=== PATIENT | female | born 2000 | race American Indian/Alaskan Native ===

== ENCOUNTER 2018-09-05 16:38 | Emergency (ER) | payer MEDICAID, OTHER ==
[2018-09-05 17:10] VITALS: BP 109/65
--- NOTE | 2018-09-05 17:11 | Emergency Department Report ---
Earache (Pediatric) - HPI Chief Complaint: Earache Stated Complaint: L EAR PAIN Time Seen by Provider: 09/05/18 17:08 Duration: 1 Day Location: Left Severity: Mild Symptoms: No URI, No Sore Throat, No Trauma to EAC, No History of Moisture in Ear, No Fever, No Vomiting, No Cough, No Shortness of Breath Other History: TO EAR WITH L EAR PAIN. NO FEVER. RUNNY NOSE. NO COUGH. AMBULATORY. NON TOXIC. ED Review of Systems ROS: Stated complaint: L EAR PAIN Other details as noted in HPI Comment: All other systems reviewed and negative Pediatric Past Medical History - Chronic Health Problems Hx Asthma: No Hx Diabetes: No Hx HIV: No Hx Renal Disease: No Hx Sickle Cell Disease: No Hx Seizures: No Peds Earache exam - Exam General: Vital signs noted. No distress. Alert and acting appropriately. HEENT: Yes Moist Mucous Membranes, No Pharyngeal Erythema, No Pharyngeal Exudates, No Rhinorrhea, No Conjuctival Injection, No Frontal Tenderness, No Maxillary Tenderness Peds Neck exam: Adenopathy: Yes, Supple: No Peds Lung exam: Good Air Exchange: Yes, Wheezes: No, Stridor: No Heart: Yes Regular Peds abdomen: Abdominal Tenderness: No Peds Skin Exam: Rash: No, Eczema: No Neurologic: Alert and oriented, no deficits. Musculoskeletal: Unremarkable. ED Course Vital Signs 09/05/18 17:08 Temperature 99.0 F Pulse Rate 82 Respiratory 20 Rate Blood Pressure 109/65 O2 Sat by Pulse 100 Oximetry ED Medical Decision Making - Medical Decision Making Vital Signs 09/05/18 17:08 Temperature 99.0 F Pulse Rate 82 Respiratory 20 Rate Blood Pressure 109/65 O2 Sat by Pulse 100 Oximetry DC HOME WITH SIMPLE URI NO FEVER NON TOXIC AMBULATORY TAKING PO NO FB IN EAR DC HOME WITH DC PLAN OF CARE AND FOLLOW UP Critical care attestation.: If time is entered above; I have spent that time in minutes in the direct care of this critically ill patient, excluding procedure time. ED Disposition Clinical Impression: Seasonal allergies, Otitis media Disposition: DC-01 TO HOME OR SELFCARE Is pt being admited?: No Does the pt Need Aspirin: No Condition: Stable Instructions: Otitis Media (ED), Allergic Rhinitis (ED) Prescriptions: Amoxicillin 500 mg PO BID #20 capsule predniSONE [Deltasone] 20 mg PO DAILY #5 tablet Fluticasone [Flonase] 1 spray NS QDAY #1 bottle Cetirizine HCl [ZyrTEC] 10 mg PO DAILY #30 capsule Referrals: [facility] [Outside] - 3-5 Days Forms: Work/School Release Form(ED) Time of Disposition: 17:10
== END 2018-09-05 17:29 | disposition home or self-care (01) ==
LOC: ED 16:38
DX: H66.92 Otitis media, unspecified, left ear (principal); J30.2 Other seasonal allergic rhinitis
CPT/HCPCS: 99282

== ENCOUNTER 2020-03-28 06:13 | Emergency (ER) | payer MEDICAID ==
[2020-03-28 06:31] VITALS: BP 113/70
[2020-03-28 06:58] LABS: Bacteria,Urine 4+ /HPF (Negative); Bilirubin,Urine NEG (Negative); Blood,Urine NEG (Negative); Color,Urine Yellow (Yellow); Mucus,Urine 3+ /HPF; Sperm,Urine 1+ /HPF (NP)
[2020-03-28 07:23] LABS: Basophils % (Auto) 0.6 % (0.0-1.8); Eosinophils # (Auto) 0.1 K/mm3 (0.0-0.4); Eosinophils % (Auto) 1.1 % (0.0-4.3); Hematocrit 41.2 % (30.3-42.9); Hemoglobin 13.4 gm/dl (10.1-14.3); Lymphocytes # (Auto) 2.3 K/mm3 (1.2-5.4); Lymphocytes % (Auto) 33.7 % (13.4-35.0); Mean Corpuscular HGB Conc 33 % (30-34); Mean Corpuscular Volume 83 fl (79-97); Monocytes # (Auto) 0.5 K/mm3 (0.0-0.8); Monocytes % (Auto) 8.1 % (0.0-7.3); Platelet Count 294 K/mm3 (140-440); Red Blood Count 4.98 M/mm3 (3.65-5.03); Red Cell Distribution Width 13.8 % (13.2-15.2)
--- NOTE | 2020-03-28 07:25 | Ultrasound Report ---
ULTRASOUND OBSTETRIC INDICATION / CLINICAL INFORMATION: abdominal pain. Clinical Gestational Age (GA) in weeks, days: Unknown TECHNIQUE: Transabdominal. COMPARISON: None available. FINDINGS: GESTATIONAL SAC: Well-defined oval shape and intrauterine in location. YOLK SAC: No significant abnormality. EMBRYO/FETUS: No significant abnormality. - [place]-Rump Length = 11.8 mm = 7 weeks, 2 days - Heart Rate, beats per minute (if present) = 38 ADNEXA: Both ovaries are well-visualized. There is no significant ovarian or adnexal abnormality.. FREE FLUID: None. ADDITIONAL FINDINGS: None. IMPRESSION: 1. Single, living intrauterine with estimated sonographic age of 7 weeks, 2days. Signer Name: Ceci Mitchell MD Signed: 03/28/2020 7:21 AM Workstation Name: [id number]
[2020-03-28 07:41] LABS: Blood Urea Nitrogen 11 mg/dL (7-17); Calcium 9.5 mg/dL (8.4-10.2); Hemolysis Index 35
[2020-03-28 07:44] LABS: BUN/Creatinine Ratio 18
[2020-03-28] MEDS ORDERED: SODIUM CHLORIDE 0.9% 1000 ML 1,000 ML IV ONE (09:21)
[2020-03-28] MEDS ORDERED: METOCLOPRAMIDE 10 MG/2 ML INJ IV STA (09:21)
[2020-03-28] MEDS ORDERED: diphenhydrAMINE 50 MG/ML VIAL IV STA (09:21)
[2020-03-28] MEDS ORDERED: PYRIDOXINE 50 MG TAB PO SCH (10:00)
--- NOTE | 2020-03-28 11:15 | Emergency Department Report ---
ED General Adult HPI - General Chief complaint: Abdominal Pain Stated complaint: DIZZY Time Seen by Provider: 03/28/20 09:16 Source: patient Mode of arrival: Ambulatory Limitations: No Limitations - History of Present Illness Initial comments: 19-year-old female that emerge department complaining of increased episodes of morning sickness associated with general aches and suspicious of some dehydration due to her hyperemesis. Reports no hemoptysis no hematemesis hematochezia no fever, chills, sweats, chest pain, palpitations. Radiation: non-radiation Quality: dull Consistency: constant Improves with: none Worsens with: none Associated Symptoms: nausea/vomiting. denies: chest pain - Related Data Previous Rx's Medication Instructions Recorded Last Taken Type Amoxicillin 500 mg PO BID #20 capsule 09/05/18 Unknown Rx Cetirizine HCl [ZyrTEC] 10 mg PO DAILY #30 capsule 09/05/18 Unknown Rx Fluticasone [Flonase] 1 spray NS QDAY #1 bottle 09/05/18 Unknown Rx predniSONE [Deltasone] 20 mg PO DAILY #5 tablet 09/05/18 Unknown Rx Cyclobenzaprine [Flexeril] 10 mg PO QHS PRN #12 tablet 10/27/19 Unknown Rx Ibuprofen [Motrin] 600 mg PO Q8H PRN #24 tablet 10/27/19 Unknown Rx cephALEXin [Keflex] 500 mg PO Q12HR #20 cap 10/27/19 Unknown Rx Metoclopramide [Reglan] 10 mg PO TID PRN #30 tab 03/28/20 Unknown Rx Pyridoxine [Vitamin B-6 50MG TAB] 100 mg PO QDAY #30 tablet 03/28/20 Unknown Rx Allergies Allergy/AdvReac Type Severity Reaction Status Date / Time No Known Allergies Allergy Verified 12/14/19 08:02 ED Review of Systems ROS: Stated complaint: DIZZY Other details as noted in HPI Comment: All other systems reviewed and negative ED Past Medical Hx - Past Medical History Previous Medical History?: No Hx Hypertension: No Hx Congestive Heart Failure: No Hx Diabetes: No Hx Deep Vein Thrombosis: No Hx Renal Disease: No Hx Sickle Cell Disease: No Hx Seizures: No Hx Asthma: No Hx COPD: No Hx HIV: No - Surgical History Past Surgical History?: No - Social History Smoking Status: Never Smoker Substance Use Type: None - Medications Home Medications: Home Medications Medication Instructions Recorded Confirmed Last Taken Type Amoxicillin 500 mg PO BID #20 capsule 09/05/18 Unknown Rx Cetirizine HCl [ZyrTEC] 10 mg PO DAILY #30 capsule 09/05/18 Unknown Rx Fluticasone [Flonase] 1 spray NS QDAY #1 bottle 09/05/18 Unknown Rx predniSONE [Deltasone] 20 mg PO DAILY #5 tablet 09/05/18 Unknown Rx Cyclobenzaprine [Flexeril] 10 mg PO QHS PRN #12 tablet 10/27/19 Unknown Rx Ibuprofen [Motrin] 600 mg PO Q8H PRN #24 tablet 10/27/19 Unknown Rx cephALEXin [Keflex] 500 mg PO Q12HR #20 cap 10/27/19 Unknown Rx Metoclopramide [Reglan] 10 mg PO TID PRN #30 tab 03/28/20 Unknown Rx Pyridoxine [Vitamin B-6 50MG TAB] 100 mg PO QDAY #30 tablet 03/28/20 Unknown Rx ED Physical Exam - General Limitations: No Limitations General appearance: alert, in no apparent distress - Head Head exam: Present: atraumatic, normocephalic - Eye Eye exam: Present: normal appearance - ENT ENT exam: Present: mucous membranes moist - Neck Neck exam: Present: normal inspection - Respiratory Respiratory exam: Present: normal lung sounds bilaterally. Absent: respiratory distress - Cardiovascular Cardiovascular Exam: Present: regular rate, normal rhythm. Absent: systolic murmur, diastolic murmur, rubs, gallop - GI/Abdominal GI/Abdominal exam: Present: soft, normal bowel sounds - Extremities Exam Extremities exam: Present: normal inspection - Back Exam Back exam: Present: normal inspection - Neurological Exam Neurological exam: Present: alert, oriented X3 - Psychiatric Psychiatric exam: Present: normal affect, normal mood - Skin Skin exam: Present: warm, dry, intact, normal color. Absent: rash ED Course Vital Signs 03/28/20 06:28 Temperature 98.6 F Pulse Rate 91 H Respiratory 18 Rate Blood Pressure 113/70 O2 Sat by Pulse 97 Oximetry - Consultations Consultation #1: 03/28/20 11:15 Significant improvement in her symptoms post treatment with with medication. She is remained hemodynamically stable throughout her entire ED visit. She is tolerating oral ambulatory asymptomatic at current ED Medical Decision Making - Lab Data Result diagrams: 03/28/20 07:12 03/28/20 07:12 - Medical Decision Making Female presents emergency department complaining of nausea and vomiting without diarrhea. The patient is overall well-appearing and suspected to have hyperemesis gravidarum. Given the history of examination he does not appear to be an emergency cause for the symptoms such as small bowel obstruction, coronary syndrome, bowel ischemia, DKA, pancreatitis, appendicitis, acute abdomen no emergent problem. Patient was treated with Reglan, Benadryl, fluids as well as vitamin D6. After treatment patient is feeling much better tolerating p.o. fluids shows no signs of dehydration Critical care attestation.: If time is entered above; I have spent that time in minutes in the direct care of this critically ill patient, excluding procedure time. ED Disposition Clinical Impression: Hyperemesis gravidarum Disposition: - TO HOME OR SELFCARE Is pt being admited?: No Does the pt Need Aspirin: No Condition: Stable Instructions: Abdominal Pain (ED), Morning Sickness, [id number], Hyperemesis Gravidarum Prescriptions: Metoclopramide [Reglan] 10 mg PO TID PRN #30 tab PRN Reason: Nausea Pyridoxine [Vitamin B-6 50MG TAB] 100 mg PO QDAY #30 tablet Referrals: [facility]IMARY [facility]ARE, [Primary Care Provider] - 3-5 Days [facility] [Provider Group] - 3-5 Days
== END 2020-03-28 11:23 | disposition home or self-care (01) ==
LOC: ED 06:13
DX: O21.0 Mild hyperemesis gravidarum (principal); Z79.899 Other long term (current) drug therapy; Z3A.01 Less than 8 weeks gestation of pregnancy
CPT/HCPCS: 36415; 76801; 80048; 81001; 84702; 85025; 96361; 96374; 96375; 99284; J1200; J2765; J7030

== ENCOUNTER 2020-06-21 20:19 | Emergency (ER) | payer MEDICAID ==
[2020-06-21] MEDS ORDERED: ACETAMINOPHEN 325 MG TAB PO ONE (20:39)
[2020-06-21] MEDS ORDERED: SODIUM CHLORIDE 0.9% 1000 ML 1,000 ML IV ONE (20:39)
--- NOTE | 2020-06-21 20:39 | Emergency Department Report ---
ED Female HPI - General Stated complaint: ABD PAIN Time Seen by Provider: 06/21/20 20:36 - History of Present Illness Initial comments: 19 yr old female presents to ED c/o RLQ abd pain. Onset today. Pt states she is about 19 weeks . She is AB1. She states she has been having intermittent pain in RLQ since today. She denies any associated vag bleeding, abnl vag d/c, UTI symptoms, diarrhea or vomiting. She states she has not taken any medications for pain today. She states her pain has improved now since arriving to ED. She also reports she has been very stressed lately and tearful. She has been has been thinking of whether she wants to keep the baby. She also does not have much family support and she lives in a hotel. She states she has not discussed her feelings about the baby with her OBGYN. She denies any SI/HI, or hallucin ations. Complaint: other (abdomen pain; 19 weeks gestation) -: Gradual, days(s) (since today ) - Related Data Previous Rx's Medication Instructions Recorded Last Taken Type Amoxicillin 500 mg PO BID #20 capsule 09/05/18 Unknown Rx Cetirizine HCl [ZyrTEC] 10 mg PO DAILY #30 capsule 09/05/18 Unknown Rx Fluticasone [Flonase] 1 spray NS QDAY #1 bottle 09/05/18 Unknown Rx predniSONE [Deltasone] 20 mg PO DAILY #5 tablet 09/05/18 Unknown Rx Cyclobenzaprine [Flexeril] 10 mg PO QHS PRN #12 tablet 10/27/19 Unknown Rx Ibuprofen [Motrin] 600 mg PO Q8H PRN #24 tablet 10/27/19 Unknown Rx cephALEXin [Keflex] 500 mg PO Q12HR #20 cap 10/27/19 Unknown Rx Metoclopramide [Reglan] 10 mg PO TID PRN #30 tab 03/28/20 Unknown Rx Pyridoxine [Vitamin B-6 50MG TAB] 100 mg PO QDAY #30 tablet 03/28/20 Unknown Rx Allergies Allergy/AdvReac Type Severity Reaction Status Date / Time No Known Allergies Allergy Verified 12/14/19 08:02 ED Review of Systems ROS: Stated complaint: ABD PAIN Other details as noted in HPI Comment: All other systems reviewed and negative Constitutional: denies: chills, fever Eyes: denies: eye pain, eye discharge, vision change ENT: denies: ear pain, throat pain Respiratory: denies: cough, shortness of breath, wheezing Cardiovascular: as per HPI Gastrointestinal: abdominal pain Genitourinary: denies: urgency, dysuria, discharge Musculoskeletal: denies: back pain, joint swelling, arthralgia Skin: denies: rash, lesions Neurological: denies: headache, weakness, paresthesias ED Past Medical Hx - Past Medical History Hx Hypertension: No Hx Congestive Heart Failure: No Hx Diabetes: No Hx Deep Vein Thrombosis: No Hx Renal Disease: No Hx Sickle Cell Disease: No Hx Seizures: No Hx Asthma: No Hx COPD: No Hx HIV: No - Social History Smoking Status: Never Smoker Substance Use Type: None - Medications Home Medications: Home Medications Medication Instructions Recorded Confirmed Last Taken Type Amoxicillin 500 mg PO BID #20 capsule 09/05/18 Unknown Rx Cetirizine HCl [ZyrTEC] 10 mg PO DAILY #30 capsule 09/05/18 Unknown Rx Fluticasone [Flonase] 1 spray NS QDAY #1 bottle 09/05/18 Unknown Rx predniSONE [Deltasone] 20 mg PO DAILY #5 tablet 09/05/18 Unknown Rx Cyclobenzaprine [Flexeril] 10 mg PO QHS PRN #12 tablet 10/27/19 Unknown Rx Ibuprofen [Motrin] 600 mg PO Q8H PRN #24 tablet 10/27/19 Unknown Rx cephALEXin [Keflex] 500 mg PO Q12HR #20 cap 10/27/19 Unknown Rx Metoclopramide [Reglan] 10 mg PO TID PRN #30 tab 03/28/20 Unknown Rx Pyridoxine [Vitamin B-6 50MG TAB] 100 mg PO QDAY #30 tablet 03/28/20 Unknown Rx ED Physical Exam - General General appearance: alert, in no apparent distress, anxious, other (tearful ) - Head Head exam: Present: atraumatic, normocephalic, normal inspection - ENT ENT exam: Present: normal exam, mucous membranes moist - Neck Neck exam: Present: normal inspection - Respiratory Respiratory exam: Present: normal lung sounds bilaterally. Absent: respiratory distress - Cardiovascular Cardiovascular Exam: Present: regular rate, normal rhythm, normal heart sounds - GI/Abdominal GI/Abdominal exam: Present: soft, other (gravid abdomen consistent with gestational age). Absent: distended, tenderness, guarding, rebound - Back Exam Back exam: Present: normal inspection, full ROM - Neurological Exam Neurological exam: Present: alert, oriented X3, CN II-XII intact - Psychiatric Psychiatric exam: Present: depressed, anxious. Absent: manic, homicidal ideation, suicidal ideation - Skin Skin exam: Present: intact ED Course Vital Signs 06/21/20 20:36 Temperature 98.6 F Pulse Rate 100 H Respiratory 16 Rate Blood Pressure 123/73 O2 Sat by Pulse 100 Oximetry ED Medical Decision Making - Medical Decision Making 2204: Patient was called several times beginning at around 2044 for labs and ultrasound but patient was nowhere to be found. Patient apparently eloped without notifying staff nor myself. Critical care attestation.: If time is entered above; I have spent that time in minutes in the direct care of this critically ill patient, excluding procedure time. ED Disposition Clinical Impression: Abdominal pain during Disposition: Z-07 ELOPED Is pt being admited?: No Does the pt Need Aspirin: No Condition: Stable Instructions: Abdominal Pain (ED)
[2020-06-21 20:44] VITALS: BP 123/73
== END 2020-06-21 22:00 | disposition left against medical advice (07) ==
LOC: ED 20:19
DX: O26.892 Other specified pregnancy related conditions, second trimester (principal); R10.31 Right lower quadrant pain; Z3A.19 19 weeks gestation of pregnancy; Z79.1 Long term (current) use of non-steroidal anti-inflammatories (NSAID); Z79.2 Long term (current) use of antibiotics; Z79.899 Other long term (current) drug therapy
CPT/HCPCS: 99282

== ENCOUNTER 2020-09-26 01:20 | Outpatient (CLI) | payer MEDICAID ==
[2020-09-26] MEDS ORDERED: LACTATED RINGERS 500 ML IV ONE (03:37)
[2020-09-26 03:43] VITALS: BP 115/75
[2020-09-26] MEDS ORDERED: BUTORPHANOL 2 MG/1 ML INJ IV ONE (04:21)
[2020-09-26] MEDS: LACTATED RINGERS 1000 ML IV SOLN IV SCH ×2 (04:32→04:59)
[2020-09-26 04:49] LABS: Bacteria,Urine 3+ /HPF (Negative); Bilirubin,Urine NEG (Negative); Blood,Urine NEG (Negative); Color,Urine Amber (Yellow); Mucus,Urine 3+ /HPF
[2020-09-26] MEDS ORDERED: ONDANSETRON 4 MG/2 ML INJ IV ONE (05:31)
== END 2020-09-26 05:27 | disposition home or self-care (01) ==
LOC: EDSTATUS 03:14 → TRG 03:19 → APU 03:21 → TRG 05:27
PROVIDERS: ATTEND Obstetrics & Gynecology
DX: O26.893 Other specified pregnancy related conditions, third trimester (principal); R10.2 Pelvic and perineal pain; M54.9 Dorsalgia, unspecified; O47.03 False labor before 37 completed weeks of gestation, third trimester; O99.343 Other mental disorders complicating pregnancy, third trimester; F41.9 Anxiety disorder, unspecified; F32.9 Major depressive disorder, single episode, unspecified; Z3A.33 33 weeks gestation of pregnancy
CPT/HCPCS: 36415; 59025; 81001; 84112; 96365; J2405; J7120; 96360; 96361; 96374

== ENCOUNTER 2021-08-23 01:04 | Emergency (ER) | payer MEDICAID ==
[2021-08-23 01:28] VITALS: BP 114/64
--- NOTE | 2021-08-23 01:38 | Emergency Department Report ---
ED Abdominal Pain HPI - General Chief Complaint: Abdominal Pain Stated Complaint: ABD PAIN Source: patient Mode of arrival: Ambulatory Limitations: No Limitations - History of Present Illness Initial Comments: Patient is a A2 20-year-old -[place] female with no past medical history who presents to the ED with complaint of acute onset persistent suprapubic pain for the last 1 week, worse in the last 2 days. Patient states that she is 1 month s/p D&C procedure at 7 weeks gestation. Patient states that immediately after the procedure she continued to bleed for a few days and then it stopped. Patient denies nausea and vomiting, dysuria, urinary frequency and urgency, vaginal bleeding, vaginal discharge, diarrhea, chest pain or shortness of breath, fever, chills, sore throat or headache and low back pain. MD Complaint: abdominal pain (Suprapubic pain) -: Sudden, days(s) (5) Location: suprapubic Radiation: none Migration to: no migration Severity scale (0 -10): 7 Quality: cramping, sharp Consistency: constant Improves With: nothing Worsens With: nothing Context: recent surgery/procedure (s/p D&C for 1 month ago) Associated Symptoms: denies other symptoms, anorexia. denies: nausea, vomiting, diarrhea, fever, chills, constipation, dysuria, hematochezia, melena, hematuria - Related Data Home Medications Medication Instructions Recorded Confirmed Last Taken Vit-Fe Fumar-FA [ 1 tab PO DAILY 09/26/20 09/26/20 Unknown Vitamin] Sertraline [Zoloft] 1 tab PO DAILY 09/26/20 09/26/20 Unknown Previous Rx's Medication Instructions Recorded Last Taken Type Ibuprofen [Motrin] 600 mg PO Q8H PRN #24 tablet 08/23/21 Unknown Rx Sulfamethoxazole/Trimethoprim 1 each PO Q12H #20 tab 08/23/21 Unknown Rx [Bactrim DS TAB] Allergies Allergy/AdvReac Type Severity Reaction Status Date / Time No Known Allergies Allergy Verified 12/14/19 08:02 ED Review of Systems ROS: Stated complaint: ABD PAIN Other details as noted in HPI Constitutional: denies: chills, fever Eyes: denies: eye pain, eye discharge, vision change ENT: denies: ear pain, throat pain Respiratory: denies: cough, shortness of breath, wheezing Cardiovascular: denies: chest pain, palpitations Endocrine: no symptoms reported Gastrointestinal: abdominal pain (Suprapubic pain). denies: nausea, vomiting, diarrhea Genitourinary: denies: urgency, dysuria, discharge Musculoskeletal: denies: back pain, joint swelling, arthralgia Skin: denies: rash, lesions Neurological: denies: headache, weakness, paresthesias Psychiatric: denies: anxiety, depression Hematological/Lymphatic: denies: easy bleeding, easy bruising ED Past Medical Hx - Past Medical History Previous Medical History?: No Hx Hypertension: No Hx Congestive Heart Failure: No Hx Diabetes: No Hx Deep Vein Thrombosis: No Hx Renal Disease: No Hx Sickle Cell Disease: No Hx Seizures: No Hx Asthma: No Hx COPD: No Hx HIV: No - Surgical History Past Surgical History?: No - Social History Smoking Status: Never Smoker - Medications Home Medications: Home Medications Medication Instructions Recorded Confirmed Last Taken Type Vit-Fe Fumar-FA [ 1 tab PO DAILY 09/26/20 09/26/20 Unknown History Vitamin] Sertraline [Zoloft] 1 tab PO DAILY 09/26/20 09/26/20 Unknown History Ibuprofen [Motrin] 600 mg PO Q8H PRN #24 tablet 08/23/21 Unknown Rx Sulfamethoxazole/Trimethoprim 1 each PO Q12H #20 tab 08/23/21 Unknown Rx [Bactrim DS TAB] ED Physical Exam - General Limitations: No Limitations General appearance: alert, in no apparent distress - Head Head exam: Present: atraumatic, normocephalic, normal inspection - Eye Eye exam: Present: normal appearance, PERRL, EOMI Pupils: Present: normal accommodation - ENT ENT exam: Present: normal exam, normal orophraynx, mucous membranes moist, TM's normal bilaterally, normal external ear exam - Neck Neck exam: Present: normal inspection, full ROM. Absent: tenderness - Respiratory Respiratory exam: Present: normal lung sounds bilaterally. Absent: respiratory distress, wheezes, rales, rhonchi, stridor, chest wall tenderness, accessory muscle use, decreased breath sounds, prolonged expiratory - Cardiovascular Cardiovascular Exam: Present: regular rate, normal rhythm, normal heart sounds. Absent: systolic murmur, diastolic murmur, rubs, gallop - GI/Abdominal GI/Abdominal exam: Present: soft, tenderness (Palpable mild suprapubic tenderness), normal bowel sounds. Absent: guarding, rebound, rigid, hyperactive bowel sounds, hypoactive bowel sounds, organomegaly, mass - Bi-manual exam: Present: other (Pelvic exam deferred at this time) - Extremities Exam Extremities exam: Present: normal inspection, full ROM, normal capillary refill. Absent: tenderness - Back Exam Back exam: Present: normal inspection, full ROM. Absent: tenderness, CVA tenderness (R), CVA tenderness (L), muscle spasm, paraspinal tenderness, vertebral tenderness - Neurological Exam Neurological exam: Present: alert, oriented X3, CN II-XII intact, normal gait, reflexes normal - Psychiatric Psychiatric exam: Present: normal affect, normal mood - Skin Skin exam: Present: warm, dry, intact, normal color. Absent: rash ED Course Vital Signs 08/23/21 01:26 Temperature 98.6 F Pulse Rate 90 Respiratory 14 Rate Blood Pressure 114/64 [Right] O2 Sat by Pulse 100 Oximetry ED Medical Decision Making - Lab Data Result diagrams: 08/23/21 01:40 08/23/21 01:40 - Medical Decision Making This is a A2 20-year-old -[place] female with no past medical history who presents to the ED with complaint of acute onset persistent suprapubic pain for the last 1 week, worse in the last 2 days. Patient states that she is 1 month s/p D&C procedure at 7 weeks gestation. Patient states that immediately after the procedure she continued to bleed for a few days and then it stopped. In the ED, patient is alert and oriented x3 and is not in any distress. Patient is hemodynamically stable. Lab test results were reviewed and are all nonactionable except for significant urinary tract infection, mild hypokalemia of 3.3 mmol/L and decreased hCG quant of 14.56. Patient was treated in the ED with Rocephin 1 g intramuscular injection and pain medication ibuprofen 600 mg p.o x1. On reevaluation, patient felt better, and was discharged home on pain medication and antibiotics and advised to follow-up with [facility] physician in 7 to 10 days for reevaluation or return to the ED immediately if symptoms get worse. - Differential Diagnosis UTI; ovarian cyst; kidney stone; positive; product of conception Critical care attestation.: If time is entered above; I have spent that time in minutes in the direct care of this critically ill patient, excluding procedure time. ED Disposition Clinical Impression: Acute suprapubic pain, Acute urinary tract infection Disposition: HOME / SELF CARE / HOMELESS Is pt being admited?: No Does the pt Need Aspirin: No Condition: Stable Instructions: Abdominal Pain (ED), Pelvic Pain, Female, [id number], Abdominal Pain, Adult, [id number], Urinary Tract Infection, Adult, [id number] Additional Instructions: All lab test results were reviewed and are all nonactionable except for significant urinary tract infection in urinalysis. Therefore take medications with food, drink plenty of fluids and follow-up with your primary care physician or [facility] physician in 7 to 10 days for reevaluation. Return to the ED imm ediately if symptoms get worse. Prescriptions: Sulfamethoxazole/Trimethoprim [Bactrim DS TAB] 1 each PO Q12H #20 tab Ibuprofen [Motrin] 600 mg PO Q8H PRN #24 tablet PRN Reason: Pain Referrals: [facility] [Provider Group] - 7-10 days Forms: Work/School Release Form(ED) Time of Disposition: 04:00 Print Language: FAROESE
[2021-08-23 01:55] LABS: Basophils # (Auto) 0.1 K/mm3 (0.0-0.1); Basophils % (Auto) 0.6 % (0.0-1.8); Eosinophils % (Auto) 0.4 % (0.0-4.3); Hematocrit 37.1 % (30.3-42.9); Hemoglobin 11.9 gm/dl (10.1-14.3); Lymphocytes # (Auto) 1.8 K/mm3 (1.2-5.4); Lymphocytes % (Auto) 16.5 % (13.4-35.0); Mean Corpuscular HGB Conc 32 % (30-34); Mean Corpuscular Volume 80 fl (79-97); Monocytes # (Auto) 0.5 K/mm3 (0.0-0.8); Monocytes % (Auto) 4.9 % (0.0-7.3); Platelet Count 284 K/mm3 (140-440); Red Blood Count 4.63 M/mm3 (3.65-5.03); Red Cell Distribution Width 14.8 % (13.2-15.2)
[2021-08-23 02:14] LABS: Alanine Aminotransferase 10 units/L (7-56); Albumin 4.1 g/dL (3.9-5); BUN/Creatinine Ratio 15; Blood Urea Nitrogen 9 mg/dL (7-17); Calcium 8.8 mg/dL (8.4-10.2); Hemolysis Index 12
[2021-08-23] MEDS ORDERED: POTASSIUM CHLORIDE ER 20 MEQ TAB PO ONE (02:30)
[2021-08-23 03:28] LABS: Bacteria,Urine 2+ /HPF (Negative); Bilirubin,Urine SM (Negative); Blood,Urine MOD (Negative); Color,Urine Amber (Yellow); Mucus,Urine 3+ /HPF
[2021-08-23 03:31] LABS: Protein,Urine >500 mg/dL (Negative); RBC,Urine > 182.0 /HPF (0.0-6.0); WBC,Urine > 182.0 /HPF (0.0-6.0)
[2021-08-23 03:33] LABS: Ictotest,Urine Negative (Negative)
[2021-08-23] MEDS ORDERED: LIDOCAINE-MPF (1%) 10 MG/1 ML VIAL 5 ML INFILTRATI ONE (03:43)
[2021-08-23] MEDS ORDERED: IBUPROFEN 600 MG TAB PO ONE (03:59)
== END 2021-08-23 05:27 | disposition home or self-care (01) ==
LOC: ED 01:04
DX: R10.9 Unspecified abdominal pain (principal); N39.0 Urinary tract infection, site not specified
CPT/HCPCS: 36415; 80053; 81001; 84702; 85025; 96372; 99283; J0696; J3490